=== PATIENT | male | born 1940 | race Caucasian/White ===

== ENCOUNTER 2017-05-28 19:08 | Emergency (ER) | payer BC ==
[~2017-05-28] VITALS: Ht 188 cm; Wt 95.3 kg
[2017-05-28] MEDS ORDERED: CLONAZEPAM1 MG PO (19:37)
[2017-05-28] MEDS ORDERED: AMLODIPINE BESYL5 MG PO (19:37)
[2017-05-28] MEDS ORDERED: NORCO 10-325 T1 EACH PO (19:37)
[2017-05-28] MEDS ORDERED: SINEMET CR 50-1 EACH PO (19:37)
[2017-05-28] MEDS ORDERED: CEFAZOLIN SOD 1 GM in WATER STERILE 10ML VIAL 10 ML IV SCH (20:00)
[2017-05-28] MEDS ORDERED: ONDANSETRON HCL INJ 2 MG/ML VIAL IV STA (20:05)
[2017-05-28] MEDS ORDERED: KETOROLAC TROMETHAMINE 30 MG/ML VIAL IV STA (20:05)
[2017-05-28] MEDS ORDERED: SODIUM CHLORIDE 0.9% 500ML 500 ML IV ONE (20:15)
[2017-05-28] MEDS ORDERED: PROMETHAZINE HCL (IM) 25 MG/ML VIAL IM ONE (20:30)
[2017-05-28] MEDS ORDERED: MORPHINE SULFATE 5 MG/ML VIAL IV ONE (21:00)
[2017-06-01] MEDS ORDERED: SINEMET 25-1001 EACH PO (17:20)
[2017-06-01] MEDS ORDERED: SULFAMETHOXAZO1 EAC1 PO (17:21)
[2017-06-01] MEDS ORDERED: SERTRALINE HCL100 MG PO (17:21)
[2017-06-01] MEDS ORDERED: FLOMAX0.4 MG PO (17:22)
[2017-06-01] MEDS ORDERED: KETOROLAC TROME10 MG PO (17:22)
== END 2017-05-28 22:30 | disposition home or self-care (01) ==
LOC: FSED 19:08
DX: R10.9 Unspecified abdominal pain (principal); N20.1 Calculus of ureter; F17.290 Nicotine dependence, other tobacco product, uncomplicated
CPT/HCPCS: 74176; 80048; 85025; 99283; J1885; J2405; J7040

== ENCOUNTER → 2017-06-02 | Day surgery (SDC) | payer BC, MEDICARE ==
[~2017-06-02] MED LIST: AMLODIPINE BESYL5 MG PO; CEFTRIAXONE SOD 1 GM VIAL ONE; CLONAZEPAM1 MG PO; DEXAMETHASONE SOD PHOS INJ 4 MG/ML VIAL ONE; FENTANYL CITRATE/PF 100MCG/2 ML INJ ONE; FLOMAX0.4 MG PO; IOPAMIDOL 610MG/1ML 300 MG/ML VIAL IV ONE; KETOROLAC TROME10 MG PO; LIDOCAINE HCL 2% LOCAL INJ 5 ML SDV VIAL INJ ONE; MIDAZOLAM HCL 2 MG/2 ML VIAL ONE; NORCO 10-325 T1 EACH PO; ONDANSETRON HCL INJ 2 MG/ML VIAL ONE; PROPOFOL IV EMULSION 10 MG/ML 20 ML VIAL ONE; SERTRALINE HCL100 MG PO; SEVOFLURANE INHAL SOLN 250 ML PEN BTL ONE; SINEMET 25-1001 EACH PO; SINEMET CR 50-1 EACH PO; SULFAMETHOXAZO1 EAC1 PO
--- OUTSIDE RECORDS SUMMARY | 2017-06-02 05:22 | XMS REPORT | Continuity of Care Document ---
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 No 05/28/17 7:56pm If yes, is advance [facility]? No 05/28/17 7:56pm If not on file with [facility] will patient provide a copy? No 05/28/17 7:56pm Do you have a Directive to Physician? No 05/28/17 7:56pm Do you have a Medical Power of Fire Coordinator? No 05/28/17 7:56pm Do you have an out of hospital Do Not Resuscitate Order? No 05/28/17 7:56pm Do you have any special needs we should be aware of? No 05/28/17 7:56pm Do you have a support person here with you today? Yes 05/28/17 7:56pm Did patient receive Notice of Privacy Practices? Yes 05/28/17 7:56pm Did patient receive patient rights and responsibilities? Yes 05/28/17 7:56pm Problems No problem information available. Medications Current Home Medications Medication Dose Units Route Directions Days Qty Instructions Start Date Amlodipine Besylate 5 Mg Tablet 5 Mg Oral Daily 30 Tab Carbidopa/Levodopa (Sinemet Cr 50-200 Tablet) 1 Each Tablet.er Oral Bedtime for Pain Clonazepam 1 Mg Tablet 3 Mg Oral As Needed for Sleep Hydrocodone Bit/Acetaminophen ([place] 10-325 Tablet) 1 Each Tablet 1 Tab Oral Bedtime for Pain Social History Smoking Status Start Date Stop Date Current every day smoker Hospital Discharge Instructions No hospital discharge instruction information available. Plan of Care Discharge Date 05/28/17 10:30pm Disposition HOME, SELF-CARE Condition at Discharge Improved Instructions/Education Provided Kidney Stones Prescriptions See Medication Section Referrals ADDY CHAMBERS MD Address: [address] [place] [id number] Additional Instructions/Education Discussed with patient working diagnosis of kidney stone and urinary tract infection. Recommend medical therapy with FOLLOW UP MD/Urology in 2-3 days. ED warnings given. Functional Status No functional status information available. Allergies, Adverse Reactions, Alerts No known allergies. Immunizations No immunization information available. Vital Signs Acute Vital Signs Vital Response Date/Time Height 6 ft 2 in 05/28/2017 7:13pm Weight 210 lb 05/28/2017 7:13pm Body Mass Index 27.0 kg/m^2 05/28/2017 7:13pm Results No relevant diagnostic test, laboratory data and/or discharge summary information available. Procedures No procedure information available. Encounters Encounter Location Arrival/Admit Date Discharge/Depart Date Attending Provider Departed Emergency Room [facility] 05/28/17 7:08pm 10:30pm KHOA HERNANDEZ MD
[2017-06-02 06:30] LABS: BASOPHILS # (AUTO) 0.1 (0.0-0.1); BASOPHILS % 0.7 % (0.0-1.0); EOSINOPHILS # (AUTO) 0.3 (0.0-0.4); EOSINOPHILS % 3.6 % (0.0-6.0); HEMATOCRIT 43.6 % (38.2-49.6); HEMOGLOBIN 14.7 g/dL (14.0-18.0); LYMPHOCYTES # (AUTO) 2.3 (1.0-3.2); LYMPHOCYTES % 27.8 % (18.0-39.1); MEAN CORPUSCULAR HEMOGLOBIN 31.7 pg (28-32); MEAN CORPUSCULAR HGB CONC 33.7 g/dL (31-35); MONOCYTES # (AUTO) 0.7 (0.2-0.8); NEUTROPHILS # (AUTO) 4.8 (2.1-6.9); NEUTROPHILS % 58.7 % (38.7-80.0); PLATELET COUNT 200 x10e3/uL (140-360); RED BLOOD COUNT 4.64 x10e6/uL (4.3-5.7); RED CELL DISTRIBUTION WIDTH 14.7 % (11.7-14.4)
--- NOTE | 2017-06-02 06:46 | Diagnostic Imaging Report ---
ABDOMEN-1VIEW (KUB) Clinical history: Preop left kidney stone Technique: AP view abdomen Comparison: None Findings: Abdomen: Nonobstructive bowel gas pattern with significant stool burden. Other: No definite stones are appreciated over the expected kidneys. Cholecystectomy clips. Impression: No stones appreciated radiographically, although these may be obscured by stool burden. Signed by: Dr Rebeca Ferguson MD on 06/02/2017 6:43 AM
--- NOTE | 2017-06-02 06:47 | Diagnostic Imaging Report ---
CHEST 2 VIEWS, Technique: CHEST 2 VIEWS Comparison: None Clinical history: Surgery, preop left kidney stone DISCUSSION: Unremarkable appearance of the heart, mediastinum, lungs and pleural spaces. IMPRESSION: No acute abnormality Signed by: Dr Rebeca Ferguson MD on 06/02/2017 6:43 AM
--- NOTE | 2017-06-02 08:10 | Operative Report ---
DATE OF PROCEDURE: June 02, 2017 PREOPERATIVE DIAGNOSES 1. Left proximal ureteral calculus. 2. Left hydronephrosis. 3. Microscopic hematuria. POSTOPERATIVE DIAGNOSES 1. Left proximal ureteral calculus. 2. Left hydronephrosis. 3. Microscopic hematuria. 4. Left renal calculus. PROCEDURES 1. Cystourethroscopy with right ureteral catheterization and right retrograde pyelogram (separate procedure for diagnosis of microscopic hematuria). 2. Cystourethroscopy with manipulation of left ureteral calculus (entirely separate procedure for manipulation of left ureteral calculus ). 3. Staged shock wave lithotripsy, left side (entirely separate procedure for left kidney stone). 4. Supervision of fluoroscopy. 5. Interpretation of retrograde ureteropyelography. ANESTHESIA: General. ESTIMATED BLOOD LOSS: Minimal. COMPLICATIONS: None. INDICATIONS FOR PROCEDURE: Mr. Moore is a very pleasant 76-year-old male with a failed trial of passage with large 7 mm proximal ureteral calculus. He and I had a long discussion about alternatives, risks and benefits including doing nothing, shock wave lithotripsy, ureteroscopy, potential for open surgery. He voiced understanding of this and he elected to proceed. PROCEDURE IN DETAIL: After informed consent was obtained, the patient was taken to the operative suite and placed supine on the table. Underwent general anesthesia, and was placed in the dorsal lithotomy position, and sterilely prepped and draped in a standard fashion for cystoscopy. A 22.5-Armenian cystoscope was inserted per urethra. It was noted to pass to the bladder. There were no tumors and no stones. Both ureteral orifices were within normal anatomic location and position and normally seen efflux of clear urine. Bilateral retrograde pyelograms were performed. The right was normal. The left revealed a very large 7 mm proximal ureteral calculus. With a moderate degree of difficulty, the stone was manipulated in the renal pelvis. Shock wave lithotripsy was then brought into the view. The stone was localized in the X, Y and Z planes. A total of 3000 shocks at a maximum power setting of 6 were delivered to the stone. Good fragmentation was seen. A retrograde pyelogram at the end of the procedure revealed no obstruction and only small fragments. At this time, the bladder was drained. The patient was awakened from anesthesia, and transported to the recovery room in excellent condition. SUPERVISION OF FLUOROSCOPY, INTERPRETATION OF RETROGRADE URETERAL PYELOGRAPHY: I was present throughout the entire procedure and I supervised the use of fluoroscopy. There was no radiologist present at any time during this procedure. Attention was turned toward the left and right ureteral orifices, catheterized with an 8-Armenian cone-tipped catheter. In a retrograde fashion, contrast was injected. It revealed delicate ureters, delicate pelviceal systems. No evidence of filling defects. No evidence of hydronephrosis. On the left side, there was a proximal 7 x 6 mm stone, which was manipulated in the left renal pelvis. Postoperative views on the left side revealed dissolution of the stone. IMPRESSION: Left ureteral calculus manipulated to the left renal pelvis, status post lithotripsy. Normal right retrograde pyelogram. Job#: [id number] SUSANNE OLIVIER
== END | disposition home or self-care (01) ==
LOC: OR 05:21
PROVIDERS: ATTEND Urology
DX: N20.1 Calculus of ureter (principal); N13.30 Unspecified hydronephrosis; N20.0 Calculus of kidney; I10 Essential (primary) hypertension
CPT/HCPCS: 36415; 50590; 71046; 74018; 85025; C1758; J0696; J1100; J2001; J2250; J2405; Q9967

== ENCOUNTER 2020-03-10 10:58 | Emergency (ER) | payer MEDICARE ==
[~2020-03-10] VITALS: Ht 188 cm; Wt 95.3 kg
[~2020-03-10 10:58] MED LIST changes: -CEFTRIAXONE SOD 1 GM VIAL ONE; -DEXAMETHASONE SOD PHOS INJ 4 MG/ML VIAL ONE; -FENTANYL CITRATE/PF 100MCG/2 ML INJ ONE; -IOPAMIDOL 610MG/1ML 300 MG/ML VIAL IV ONE; -LIDOCAINE HCL 2% LOCAL INJ 5 ML SDV VIAL INJ ONE; -MIDAZOLAM HCL 2 MG/2 ML VIAL ONE; -ONDANSETRON HCL INJ 2 MG/ML VIAL ONE; -PROPOFOL IV EMULSION 10 MG/ML 20 ML VIAL ONE; -SEVOFLURANE INHAL SOLN 250 ML PEN BTL ONE
[2020-03-10] MEDS: ONDANSETRON HCL INJ 2MG/ML 2ML 2 MG/ML VIAL IV STA ×2 (11:21→11:29)
[2020-03-10] MEDS: SODIUM CHLORIDE 0.9% 1000ML 1,000 ML IV ONE (11:21)
[2020-03-10] MEDS: KETOROLAC TROMETHAMINE 30 MG/ML VIAL IV ONE (11:21)
[2020-03-10] MEDS ORDERED: KETOROLAC TROMETHAMINE 30 MG/ML VIAL ONE (11:22)
[2020-03-10] MEDS ORDERED: ONDANSETRON HCL INJ 2MG/ML 2ML 2 MG/ML VIAL ONE (11:22)
[2020-03-10] MEDS ORDERED: SODIUM CHLORIDE 0.9% 1000ML 1,000 ML ONE (11:22)
[2020-03-10] MEDS: KETOROLAC TROMETHAMINE 30 MG/ML VIAL IV STA (11:29)
--- NOTE | 2020-03-10 12:00 | Diagnostic Imaging Report ---
EXAM: CT ABDOMEN AND PELVIS WITHOUT CONTRAST FOR RENAL STONES CLINICAL INDICATION: Right flank pain and nausea for 4 days TECHNIQUE: CT abdomen and pelvis was performed, without IV or oral contrast, as per department renal stone protocol. Axial, sagittal, and coronal reconstructions were obtained. IV CONTRAST: Not administered, limiting sensitivity of this exam for evaluation of solid visceral organs, vascular structures, and retroperitoneum. ORAL CONTRAST:Not administered, limiting sensitivity of this exam for evaluation of bowel, retroperitoneum, and intraabdominal fluid collections. RADIATION DOSE REDUCTION: This exam was performed according to the departmental dose-optimization program which includes automated exposure control, adjustment of the mA and/or kV according to patient size and/or use of iterative reconstruction technique. COMPARISON: None FINDINGS: LOWER CHEST: No pathologic process in imaged portion of lower chest RIGHT KIDNEY: No calculi. Contour irregularity of the lateral cortex close to the lower pole suggestive of prior infection or infarction. RIGHT URETER: Normal course and caliber. No ureterolithiasis. LEFT KIDNEY: A 7 mm calculus in the posterior mid pole calyx. A 3 mm calculus in the lower posterior calyx. Contour irregularity of the lateral cortex close to the lower pole suggestive of prior infection or infarction. LEFT URETER: Normal course and caliber. No ureterolithiasis. URINARY BLADDER: Unremarkable. No calculi. LIVER: No pathologic process. GALLBLADDER: Status post cholecystectomy BILE DUCTS: No pathologic process. PANCREAS: No pathologic process. SPLEEN: No pathologic process. ADRENALS: No pathologic process. GASTROINTESTINAL TRACT: No pathologic process. Retained barium in multiple colonic diverticula. APPENDIX: No inflammatory changes in region of appendix.] LYMPH NODES: No lymphadenopathy. PERITONEUM/MESENTERY: No free air, significant free fluid, mass or fluid collection. VESSELS: No vascular abnormality. ADDITIONAL RETROPERITONEAL FINDINGS: None. REPRODUCTIVE ORGANS: No pathologic process. ABDOMINAL AND PELVIC [place]: No pathologic process. MUSCULOSKELETAL: Degenerative disc disease most advanced at L5-S1 level. ADDITIONAL FINDINGS: None. IMPRESSION: Two small left renal calculi nonobstructive. No evidence of obstructive urinary tract calculi. No other significant abnormality. Standardized Report: [id number]. Signed by: Jovanny Rizo MD on 03/10/2020 11:57 AM
--- OUTSIDE RECORDS SUMMARY | 2020-03-10 12:03 | XMS REPORT | Continuity of Care Document ---
Author Author [facility] Organization [facility] Address [address] [place] [address] Phone Unavailable Care Team Providers Care Ladle Handler Name Role Phone ADDY CHAMBERS MD PCP JESSICA ONEILL Attphys Unavailable ALICIA GARCIA Attphys Unavailable Payers Payer Name Policy Type Policy Number Effective Date Expiration Date [employer] [employer] [employer] [id number] 2017 00:00:00 1998 00:00:00 [facility] Problems This patient has no known problems. Allergies, Adverse Reactions, Alerts This patient has no known allergies or adverse reactions. Medications Ordered Medication Name Filled Medication Name Start Date Stop Da te Current Medication? Ordering Clinician Indication Dosage Frequency Signature (SIG) Comments Components Source Amlodipine Besylate 5 Mg Tablet Amlodipine Besylate 5 Mg Tablet Yes 5 Daily [facility] Carbidopa/Levodopa (Sinemet Cr 50-200 Tablet) 1 Each T ablet.er Carbidopa/Levodopa (Sinemet Cr 50-200 Tablet) 1 Each Tablet.er Y es Bedtime for Pain [facility] Clonazepam 1 Mg Tablet Clonazepam 1 Mg Tablet Yes 3 As Needed for Sleep [facility] Hydrocodone Bit/Acetaminophen ([place] 10-325 Tablet) 1 Each Tablet Hydrocodone Bit/Acetaminophen ([place] 10-325 Tablet) 1 Each Tablet Yes 1 Bedtime for Pain [facility] Procedures This patient has no known procedures. Encounters Start Date/Time End Date/Time Encounter Type Admission Type [facility] Care Department Encounter ID Source 2017-05-28 19:08:00 2017-05-28 22:30:[address] [facility] [id number] [facility] Results Test Description Test Time Test Comments Results Result Comments Source CT ABD/PEL WO CONTRAST-HOPD 2020-03-10 11:48:00 [facility] 1940 Sex: M [facility] [address] [address] Patient Name: RIA CASSIDY MR #: [id number] : 1940 Age/Sex: 79/M Req #: [id number] Adm Physician: Ordered by: JESSICA ONEILL MD Report #: [id number] Location: [facility] OF [facility] Room/Bed: Procedure: [id number] HOPD/CT ABD/PEL WO CONTRAST-HOPD Exam Date: 03/10/20 Exam Time: 1138 REPORT STATUS: Signed EXAM: CT ABDOMEN AND PELVIS WITHOUT CONTRAST FOR RENAL STONES CLINICAL INDICATION: Right flank pain and nausea for 4 days TECHNIQUE: CT abdomen and pelvis was performed, without IV or oral contrast, as per department renal stone protocol. Axial, sagittal, and coronal reconstructions were obtained. IV CONTRAST: Not administered, limiting sensitivity of this exam for evaluation of solid visceral organs, vascular structures, and retroperitoneum. ORAL CONTRAST:Not administered, limiting sensitivity of this exam for evaluation of bowel, retroperitoneum, and intraabdominal fluid collections. RADIATION DOSE REDUCTION: This exam was performed according to the departmental dose- optimization program which includes automated exposure control, adjustment of the mA and/or kV according to patient size and/or use of iterative reconstruction technique. COMPARISON: None FINDINGS: LOWER CHEST: No pathologic process in imaged portion of lower chest RIGHT KIDNEY: No calculi. Contour irregularity of the lateral cortex close to the lower pole suggestive of prior infection or infarction. RIGHT URETER: Normal course and caliber. No ureterolithiasis. LEFT KIDNEY: A 7 mm calculus in the posterior mid pole calyx. A 3 mm calculus in the lower posterior calyx. Contour irregularity of the lateral cortex close to the lower pole suggestive of prior infection or infarction. LEFT URETER: Normal course and caliber. No ureterolithiasis. URINARY BLADDER: Unremarkable. No calculi. LIVER: No pathologic process. GALLBLADDER: Status post cholecyst ectomy BILE DUCTS: No pathologic process. PANCREAS: No pathologic process. SPLEEN: No pathologic process. ADRENALS: No pathologic process. GASTROINTESTINAL TRACT: No pathologic process. Retained barium in multiple colonic diverticula. APPENDIX: No inflammatory changes in region of appendix.] LYMPH NODES: No lymphadenopathy. PERITONEUM/MESENTERY: No free air, significant free fluid, mass or fluid collection. VESSELS: No vascular abnormality. ADDITIONAL RETROPERITONEAL FINDINGS: None. REPRODUCTIVE ORGANS: No pathologic proc ess. ABDOMINAL AND PELVIC [place]: No pathologic process. MUSCULOSKELETAL: Degenerative disc disease most advanced at L5-S1 level. ADDITIONAL FINDINGS: None. IMPRESSION: Two small left renal calculi nonobstructive. No evidence of obstructive urinary tract calculi. No other significant abnormality. Standardized Report: [id number]. Signed by: Guy Oakes MD on 03/10/2020 11:57 AM Dictated By: GUY OAKES MD 115 Transcribed By: LOUISE on 03/10/201156 COPY TO: JESSICA ONEILL MD [facility] ([address] [address] Patient Name: RIA CASSIDY MR #: [id number] : 1940 Age/Sex: 76/M Req #: [id number] Adm Physician: Ordered by: KHOA NIETO MD Report #: [id number] Location: OR Room/Bed: Procedure: [id number] DX/ABDOMEN-1VIEW (KUB) Exam Date: 06/02/17 Exam Time: 619 REPORT STATUS: Signed ABDOMEN-1VIEW (KUB) Clinical history: Preop left kidney stone Technique: AP view abdomen Comparison: None Findings: Abdomen: Nonobstructive bowel gas pattern with significant stool burden. Other: No definite stones are appreciated over the expected kidneys. Cholecystectomy clips. Impression: No stones appreciated radiographically, although these may be obscured by stool burden. Signed by: Dr Sonia Ferguson MD on 06/02/2017 6:43 AM Dictated By: SONIA FERGUSON MD 2 Transcribed By: LOUISE on 06/02/17642 COPY TO: KHOA NIETO MD CHEST 2 VIEWS [address] [place] [address] Patient Name: RIA CASSIDY MR #: [id number] : 1940 Age/Sex: 76/M Req #: [id number] Adm Physician: Ordered by: KHOA NIETO MD Report #: [id number] Location: OR Room/Bed: Procedure: [id number] DX/CHEST 2 VIEWS Exam Date: 06/02/17 Exam Time: 619 REPORT STATUS: Signed CHEST 2 VIEWS, Technique: CHEST 2 VIEWS Comparison: None Clinical history: Surgery, preop left kidney stone DISCUSSION: Unremarkable appearance of the heart, mediastinum, lungs and pleural spaces. IMPRESSION: No acute abnormality Signed by: Dr Sonia Ferguson MD on 06/02/2017 6:43 AM Dictated By: SONIA FERGUSON MD Transcribed By: LOUISE on 06/02/17642 COPY TO: KHOA NIETO MD
--- NOTE | 2020-03-10 12:34 | Emergency Department Note ---
History of Present Illnes History of Present Illness Chief Complaint: Abdominal Complaints History of Present Illness This is a 79 year old male Chief Complaint Comment rt flank pain. hx kidney stones. intermittant. aaox4. ambulatory. . Historian: Patient Arrival Mode: Car Onset (how long ago): day(s) (2) Location: RIGHT FLANK Quality: DULL Radiation: Denies non-radiation, Denies back, Denies neck, Denies extremity, Denies abdomen, Denies periumbilical, Denies flank, Denies proximal, Denies distal, Denies other Severity: moderate Onset quality: gradual Duration (how long): day(s) (2) Timing of current episode: intermittent Progression: waxing and waning Chronicity: new Context: Denies recent illness, Denies recent surgery, Denies recent immobilization, Denies recent travel, Denies trauma/injury, Denies new medications, Denies hx of DVT/PE, Denies non-compliance w/ medications, Denies other Relieving factors: none Exacerbating factors: none Associated symptoms: Denies denies other symptoms, Denies confusion, Denies chest pain, Denies cough, Denies diaphoresis, Denies fever/chills, Denies headaches, Denies loss of appetite, Denies malaise, Denies nausea/vomiting, Denies rash, Denies seizure, Denies shortness of breath, Denies syncope, Denies weakness, Denies other Treatments prior to arrival: none Past Medical/Family History Physician Review I have reviewed the patient's past medical and family history. Any updates have been documented here. Past Medical History Recent Fever: No Clinical Suspicion of Infectio: No New/Unexplained Change in Ment: No Past Medical History: Kidney Stones Other Medical History: RESTLESS LEG SYNDROME Social History Smoking Cessation: Unknown if ever smoked Counseling Performed: No Alcohol Use: None Any Illegal Drug Use: No Physically hurt or threatened: No Other Last Tetanus: UTD Any Pre-Existing Lines (PICC,: No Review of Systems Review of Systems Constitutional: Reports no symptoms EENTM: Reports no symptoms Cardiovascular: Reports no symptoms Respiratory: Reports no symptoms Gastrointestinal: Reports as per HPI Genitourinary: Reports no symptoms Musculoskeletal: Reports no symptoms Integumentary: Reports no symptoms; Denies as per HPI, Denies change in color, Denies change in hair/nails, Denies dryness, Denies lesions, Denies lumps, Denies rash, Denies poor turgor, Denies ecchymosis, Denies other Neurological: Reports no symptoms; Denies as per HPI, Denies headache, Denies numbness, Denies paresthesia, Denies pre-existing deficit, Denies seizure, Denies tingling, Denies tremors, Denies weakness, Denies other Psychological: Reports no symptoms Endocrine: Reports no symptoms Hematological/Lymphatic: Reports no symptoms Physical Exam Related Data Allergies: Coded Allergies: No Known Allergies (Unverified , 05/28/17) Triage Vital Signs Vital Signs Date Time Temp Pulse Resp B/P (MAP) Pulse Ox O2 Delivery O2 Flow Rate FiO2 03/10/20 11:00 98.7 68 16 177/70 97 Room Air Physical Exam CONSTITUTIONAL Constitutional: Present well-developed, Present well-nourished HENT HENT: Present normocephalic, Present atraumatic, Present oropharynx clear/moist, Present nose normal HENT L/R: Present left ext ear normal, Present right ext ear normal; Absent left TM normal, Absent right TM normal, Absent left canal normal, Absent right canal normal, Absent left impacted cerumen, Absent right impacted cerumen, Absent left bulging TM, Absent right bulging TM, Absent other EYES Eyes: Reports PERRL, Reports conjunctivae normal; Denies EOM normal, Denies lids normal, Denies left eye discharge, Denies right eye discharge, Denies scleral icterus, Denies other NECK Neck: Present ROM normal; Absent supple, Absent thyromegaly, Absent tracheal deviation, Absent stridor, Absent JVD, Absent cervical adenopathy, Absent carotid bruit, Absent other PULMONARY Pulmonary: Present effort normal, Present breath sounds normal; Absent respiratory distress, Absent rales, Absent rhonchi, Absent chest tenderness, Absent other CARDIOVASCULAR Cardiovascular: Present regular rhythm, Present heart sounds normal, Present capillary refill normal, Present normal rate; Absent irregular rhythm, Absent intact distal pulses, Absent tachycardia, Absent bradycardia, Absent murmur, Absent gallop, Absent friction rub, Absent palpable pulses, Absent strong pulses, Absent weak pulses, Absent LLE edema, Absent RLE edema, Absent other GASTROINTESTINAL Abdominal: Present soft, Present nontender, Present bowel sounds normal; Absent distension, Absent tender, Absent guarding, Absent mass, Absent rebound, Absent hernia, Absent left CVA tenderness, Absent right CVA tenderness, Absent other GENITOURINARY Genitourinary: Present exam deferred; Absent penis normal, Absent rectum normal, Absent prostate normal, Absent guaiac result, Absent penis tenderness, Absent other SKIN Skin: Present warm, Present dry; Absent erythema, Absent pale, Absent rash, Absent jaundiced, Absent bruising, Absent lesion, Absent other MUSCULOSKELETAL Musculoskeletal: Present ROM normal NEUROLOGICAL Neurological: Present alert, Present oriented x 3, Present no gross motor or sensory deficits; Absent DTRs normal, Absent cranial nerve deficit, Absent sensory deficit, Absent abnormal DTRs, Absent abnormal coordination, Absent abnormal gait, Absent weakness, Absent other PSYCHOLOGICAL Psychological: Present mood/affect normal, Present judgement normal Results Laboratory Lab results reviewed: Yes Imaging Imaging results reviewed: Yes Assessment & Plan Medical Decision Making MDM RENAL COLIC APPENDICITIS Reassessment Reassessment time: 22:00 Reassessment BETTER Assessment & Plan Final Impression: (1) Abdominal pain, right lower quadrant Depart Disposition: HOME, SELF-CARE Last Vital Signs Date Time Temp Pulse Resp B/P (MAP) Pulse Ox O2 Delivery O2 Flow Rate FiO2 03/10/20 11:00 98.7 68 16 177/70 97 Room Air Home Meds Active Scripts Ciprofloxacin Hcl (CIPRO) 500 Mg Tablet, 500 MG PO Q12H, #10 TAB Prov:JESSICA ONEILL MD 03/10/20 Nitrofurantoin Monohyd/M-Cryst (MACROBID 100 MG CAPSULE) 100 Mg Capsule, 100 MG PO BIDWM, #10 CAP Prov:JESSICA ONEILL MD 03/10/20 Cyclobenzaprine Hcl (FLEXERIL) 5 Mg Tablet, 10 MG PO Q8H PRN for PAIN, #15 TAB 0 Refills Prov:JESSICA ONEILL MD 03/10/20 Tamsulosin Hcl* (FLOMAX*) 0.4 Mg Cap, 0.4 MG PO DAILY, #7 CAP Prov:JESSICA ONEILL MD 03/10/20 Ketorolac Tromethamine (TORADOL) 10 Mg Tablet, 10 MG PO TID for pain, #15 Prov:JESSICA ONEILL MD 03/10/20 Reported Medications Tamsulosin Hcl* (FLOMAX*) 0.4 Mg Cap, 0.4 MG PO BID, #30 CAP 06/01/17 Ketorolac Tromethamine (TORADOL) 10 Mg Tablet, 10 MG PO PRN 06/01/17 Sulfamethoxazole/Trimethoprim (SULFAMETHOXAZOLE-TMP DS TABLET) 1 Each Tablet, PO BID 06/01/17 Sertraline Hcl (SERTRALINE HCL) 100 Mg Tablet, 100 MG PO DAILY, TAB 06/01/17 Carbidopa/Levodopa (SINEMET 25-100 MG TABLET) 1 Each Tablet, 1 EACH PO PRN, #30 TAB 06/01/17 Hydrocodone Bit/Acetaminophen (NORCO 10-325 TABLET) 1 Each Tablet, 1 TAB PO PRN 05/28/17 Clonazepam (CLONAZEPAM) 1 Mg Tablet, 1 MG PO PRN, TAB 05/28/17 Amlodipine Besylate (AMLODIPINE BESYLATE) 5 Mg Tablet, 5 MG PO HS, #30 TAB 05/28/17 Carbidopa/Levodopa (SINEMET CR 50-200 TABLET) 1 Each Tablet.er, PO QID 05/28/17 Medications in the ED Ondansetron HCl 4 mg STK-MED ONCE .ROUTE ; Start 03/10/20 at 11:22; Stop 03/10/20 at 11:17; Status DC Ketorolac Tromethamine 30 mg STK-MED ONCE .ROUTE ; Start 03/10/20 at 11:22; Stop 03/10/20 at 11:17; Status DC Sodium Chloride 1,000 ml @ ud STK-MED ONCE .ROUTE ; Start 03/10/20 at 11:22; Stop 03/10/20 at 11:17; Status DC Sodium Chloride 1,000 ml @ 0 mls/hr Q0M ONCE IV Last administered on 03/10/20at 11:21; Admin Dose 1,000 MLS/HR; Start 03/10/20 at 11:30; Stop 03/10/20 at 11:31; Status DC Ketorolac Tromethamine 15 mg ONCE ONCE IV Last administered on 03/10/20at 11:21; Admin Dose 15 MG; Start 03/10/20 at 11:30; Stop 03/10/20 at 11:31; Status DC Ondansetron HCl 4 mg NOW STAT IV Last administered on 03/10/20at 11:21; Admin Dose 4 MG; Start 03/10/20 at 11:18; Stop 03/10/20 at 11:26; Status DC Ketorolac Tromethamine 15 mg ONCE STAT IV ; Start 03/10/20 at 11:24; Stop 03/10/20 at 11:33; Status DC Ondansetron HCl 4 mg NOW STAT IV ; Start 03/10/20 at 11:24; Stop 03/10/20 at 11:33; Status DC JESSICA ONEILL MD Mar 10, 2020 12:34
[2020-03-10] MEDS ORDERED: CIPRO500 MG PO (12:37)
[2020-03-10] MEDS ORDERED: FLOMAX0.4 MG PO (12:37)
[2020-03-10] MEDS ORDERED: CYCLOBENZAPRINE5 MG PO (12:37)
[2020-03-10] MEDS ORDERED: MACROBID 100 M100 MG PO (12:37)
[2020-03-10] MEDS ORDERED: KETOROLAC TROME10 MG PO (12:37)
== END 2020-03-10 12:55 | disposition home or self-care (01) ==
LOC: FSED 11:33
DX: R10.31 Right lower quadrant pain (principal); M54.5 Low back pain; G25.81 Restless legs syndrome; Z87.442 Personal history of urinary calculi
CPT/HCPCS: 74176; 80053; 81003; 85025; 99284; J1885; J2405; J7030

== ENCOUNTER 2020-03-14 12:17 | Emergency (ER) | payer MEDICARE ==
[~2020-03-14] VITALS: Ht 188 cm; Wt 101.2 kg
[~2020-03-14 12:17] MED LIST changes: +CIPRO500 MG PO; +CYCLOBENZAPRINE5 MG PO; +MACROBID 100 M100 MG PO
--- NOTE | 2020-03-14 12:33 | Emergency Department Note ---
History of Present Illnes History of Present Illness Chief Complaint: General Medicine Complaints History of Present Illness This is a 79 year old male recently seen at [facility] 03/10/20 returns to the ED for R flank pain . Rx Cyclobenzaprine and Toradol, patient has finished mediciation. Appointment with Dr Bruner 03/17/2020 . Historian: Patient Arrival Mode: Car Onset (how long ago): day(s) (4) Location: R flank pain Radiation: Reports non-radiation Severity: moderate Onset quality: gradual Duration (how long): hour(s) Timing of current episode: constant Progression: worsening Chronicity: new Context: Denies recent illness, Denies recent surgery, Denies recent immobilization, Denies recent travel, Denies trauma/injury, Denies new medications, Denies hx of DVT/PE, Denies non-compliance w/ medications, Denies other Relieving factors: none Exacerbating factors: none Associated symptoms: Reports nausea/vomiting Treatments prior to arrival: none Past Medical/Family History Physician Review I have reviewed the patient's past medical and family history. Any updates have been documented here. Past Medical History Recent Fever: No Clinical Suspicion of Infectio: No New/Unexplained Change in Ment: No Past Medical History: Kidney Stones Other Medical History: RESTLESS LEG SYNDROME Past Surgical History: None Social History Smoking Cessation: Never Smoker Alcohol Use: None Any Illegal Drug Use: No Other Last Tetanus: UTD Review of Systems Review of Systems Constitutional: Reports no symptoms EENTM: Reports no symptoms Cardiovascular: Reports no symptoms Respiratory: Reports no symptoms Gastrointestinal: Reports nausea Genitourinary: Reports pain (r flank) Musculoskeletal: Reports no symptoms Integumentary: Reports no symptoms Neurological: Reports no symptoms Psychological: Reports no symptoms Endocrine: Reports no symptoms Hematological/Lymphatic: Reports no symptoms Physical Exam Related Data Allergies: Coded Allergies: No Known Allergies (Unverified , 05/28/17) Triage Vital Signs Vital Signs Date Time Temp Pulse Resp B/P (MAP) Pulse Ox O2 Delivery O2 Flow Rate FiO2 03/14/20 12:27 98.0 88 18 133/72 96 Room Air Vital signs reviewed: Yes Physical Exam CONSTITUTIONAL Constitutional: Present well-developed, Present well-nourished HENT HENT: Present normocephalic, Present atraumatic, Present oropharynx clear/moist, Present nose normal HENT L/R: Present left ext ear normal, Present right ext ear normal EYES Eyes: Reports PERRL, Reports conjunctivae normal NECK Neck: Present ROM normal PULMONARY Pulmonary: Present effort normal, Present breath sounds normal CARDIOVASCULAR Cardiovascular: Present regular rhythm, Present heart sounds normal, Present capillary refill normal, Present normal rate GASTROINTESTINAL Abdominal: Present right CVA tenderness GENITOURINARY Genitourinary: Present exam deferred SKIN Skin: Present warm, Present dry MUSCULOSKELETAL Musculoskeletal: Present ROM normal NEUROLOGICAL Neurological: Present alert, Present oriented x 3, Present no gross motor or sensory deficits PSYCHOLOGICAL Psychological: Present mood/affect normal, Present judgement normal Results Imaging Imaging results reviewed: Yes Impressions [place] [id number] Patient Name: RIA CASSIDY MR #: [id number] : 1940 Age/Sex: 79/M Req #: [id number] Adm Physician: Ordered by: RIA OROPEZA DO Report #: [id number] Location: [facility] Room/Bed: Procedure: [id number] HOPD/CT ABD/PEL WO CONTRAST-HOPD Exam Date: 03/14/20 Exam Time: 1308 REPORT STATUS: Signed EXAM: CT Abdomen and Pelvis WITHOUT intravenous contrast INDICATION: Flank pain COMPARISON: CT abdomen and pelvis of 03/10/2020 TECHNIQUE: Abdomen and pelvis were scanned utilizing a multidetector helical scanner from the lung base to the pubic symphysis without administration of IV contrast. Coronal and sagittal reformations were obtained. IV CONTRAST: None ORAL CONTRAST: None COMPLICATIONS: None RADIATION DOSE: Total DLP: 871 mGy*cm Dose modulation, iterative reconstruction, and/or weight based adjustment of the mA/kV was utilized to reduce the radiation dose to as low as reasonably achievable. FINDINGS: LOWER THORAX: Normal. HEPATOBILIARY: No focal liver lesions. Status post cholecystectomy. SPLEEN: No splenomegaly. PANCREAS: No focal masses or ductal dilatation. ADRENALS: No adrenal nodules. KIDNEYS/URETERS: Unchanged nonobstructive left lower pole renal calculi measure up to 7 mm. No hydronephrosis or hydroureter. PELVIC ORGANS/BLADDER: Coarse calcifications in the nonenlarged prostate. PERITONEUM / RETROPERITONEUM: No free air or fluid. LYMPH NODES: No lymphadenopathy. VESSELS: Mild scattered atherosclerotic calcifications of the nonaneurysmal abdominal aorta and major branches. GI TRACT: Diverticulosis without CT evidence of diverticulitis. No abnormal bowel thickening. No bowel obstruction. BONES AND SOFT TISSUES: No acute osseous injury. No suspicious lytic or blastic lesions. Grade 1 retrolisthesis at L2-3. IMPRESSION: Unchanged nonobstructive left lower pole renal calculi measure up to 7 mm. No hydronephrosis or hydroureter. Diverticulosis. Signed by: Frannie Ulloa MD on 03/14/2020 1:15 PM Dictated By: FRANNIE ULLOA MD 14 Transcribed By: LOUSIE on 03/14/201314 COPY TO: RIA OROPEZA DO~ Assessment & Plan Medical Decision Making MDM Diff Dx : appendicitis, kidney stone, UTI, kidney infection sciatica Assessment & Plan Final Impression: (1) Right low back pain Home Meds Active Scripts Ciprofloxacin Hcl (CIPRO) 500 Mg Tablet, 500 MG PO Q12H, #10 TAB Prov:JESSICA ONEILL MD 03/10/20 Nitrofurantoin Monohyd/M-Cryst (MACROBID 100 MG CAPSULE) 100 Mg Capsule, 100 MG PO BIDWM, #10 CAP Prov:JESSICA ONEILL MD 03/10/20 Cyclobenzaprine Hcl (FLEXERIL) 5 Mg Tablet, 10 MG PO Q8H PRN for PAIN, #15 TAB 0 Refills Prov:JESSICA ONEILL MD 03/10/20 Tamsulosin Hcl* (FLOMAX*) 0.4 Mg Cap, 0.4 MG PO DAILY, #7 CAP Prov:JESSICA ONEILL MD 03/10/20 Ketorolac Tromethamine (TORADOL) 10 Mg Tablet, 10 MG PO TID for pain, #15 Prov:JESSICA ONEILL MD 03/10/20 Reported Medications Tamsulosin Hcl* (FLOMAX*) 0.4 Mg Cap, 0.4 MG PO BID, #30 CAP 06/01/17 Ketorolac Tromethamine (TORADOL) 10 Mg Tablet, 10 MG PO PRN 06/01/17 Sulfamethoxazole/Trimethoprim (SULFAMETHOXAZOLE-TMP DS TABLET) 1 Each Tablet, PO BID 06/01/17 Sertraline Hcl (SERTRALINE HCL) 100 Mg Tablet, 100 MG PO DAILY, TAB 06/01/17 Carbidopa/Levodopa (SINEMET 25-100 MG TABLET) 1 Each Tablet, 1 EACH PO PRN, #30 TAB 06/01/17 Hydrocodone Bit/Acetaminophen (NORCO 10-325 TABLET) 1 Each Tablet, 1 TAB PO PRN 05/28/17 Clonazepam (CLONAZEPAM) 1 Mg Tablet, 1 MG PO PRN, TAB 05/28/17 Amlodipine Besylate (AMLODIPINE BESYLATE) 5 Mg Tablet, 5 MG PO HS, #30 TAB 05/28/17 Carbidopa/Levodopa (SINEMET CR 50-200 TABLET) 1 Each Tablet.er, PO QID 05/28/17 RIA OROPEZA DO Mar 14, 2020 12:33
[2020-03-14] MEDS ORDERED: KETOROLAC TROMETHAMINE 60 MG/2 ML VIAL IM ONE (12:45)
[2020-03-14] MEDS ORDERED: KETOROLAC TROMETHAMINE 60 MG/2 ML VIAL ONE (12:51)
--- NOTE | 2020-03-14 13:18 | Diagnostic Imaging Report ---
EXAM: CT Abdomen and Pelvis WITHOUT intravenous contrast INDICATION: Flank pain COMPARISON: CT abdomen and pelvis of 03/10/2020 TECHNIQUE: Abdomen and pelvis were scanned utilizing a multidetector helical scanner from the lung base to the pubic symphysis without administration of IV contrast. Coronal and sagittal reformations were obtained. IV CONTRAST: None ORAL CONTRAST: None COMPLICATIONS: None RADIATION DOSE: Total DLP: 871 mGy*cm Dose modulation, iterative reconstruction, and/or weight based adjustment of the mA/kV was utilized to reduce the radiation dose to as low as reasonably achievable. FINDINGS: LOWER THORAX: Normal. HEPATOBILIARY: No focal liver lesions. Status post cholecystectomy. SPLEEN: No splenomegaly. PANCREAS: No focal masses or ductal dilatation. ADRENALS: No adrenal nodules. KIDNEYS/URETERS: Unchanged nonobstructive left lower pole renal calculi measure up to 7 mm. No hydronephrosis or hydroureter. PELVIC ORGANS/BLADDER: Coarse calcifications in the nonenlarged prostate. PERITONEUM / RETROPERITONEUM: No free air or fluid. LYMPH NODES: No lymphadenopathy. VESSELS: Mild scattered atherosclerotic calcifications of the nonaneurysmal abdominal aorta and major branches. GI TRACT: Diverticulosis without CT evidence of diverticulitis. No abnormal bowel thickening. No bowel obstruction. BONES AND SOFT TISSUES: No acute osseous injury. No suspicious lytic or blastic lesions. Grade 1 retrolisthesis at L2-3. IMPRESSION: Unchanged nonobstructive left lower pole renal calculi measure up to 7 mm. No hydronephrosis or hydroureter. Diverticulosis. Signed by: Meg Verdin MD on 03/14/2020 1:15 PM
[2020-03-14 13:43] VITALS: BP 119/68
--- OUTSIDE RECORDS SUMMARY | 2020-03-14 13:44 | XMS REPORT | Continuity of Care Document ---
Author Author [facility] t Organization [facility] Address [address] [place] [id number] Phone Unavailable Care Team Providers Care Leather Grader Name Role Phone TRISH STEIN, MD DALY PCP RIA OROPEZA Attphys Unavailable JESSICA ONEILL Attphys Unavailable ALICIA GARCIA Attphys Unavailable Payers Payer Name Policy Type Policy Number Effective Date Expiration Date Elysia Dior Medicare Advantage [id number] 2016 00:00:00 [facility] [id number] 2017 00:00:00 1998 00:00:00 [facility] Problems Condition Name Condition Details Condition Category Status Onset Date Resolution Date Last Treatment Date Treating Clinician Comments Source Problem Condition Active [facility] Allergies, Adverse Reactions, Alerts This patient has no known allergies or adverse reactions. Social History Social Habit Start Date Stop Date Quantity Comments Source Sex Assigned At 1940 00:00:00 1940 00:00:00 Male [facility] Medications Ordered Medication Name Filled Medication Name Start Date Stop Da te Current Medication? Ordering Clinician Indication Dosage Frequency Signature (SIG) Comments Components Source Ciprofloxacin Hcl (Cipro) 500 Mg TABLET Ciprofloxacin Hcl (C ipro) 500 Mg TABLET 2020-03-10 12:37:00 Yes 500 Every 12 Hours [facility] Cyclobenzaprine Hcl (Flexeril) 5 Mg TABLET Cyclobenzap rine Hcl (Flexeril) 5 Mg TABLET 2020-03-10 12:37:00 Yes 10 Every 8 Hours as needed for Pain [facility] Ketorolac Tromethamine (Toradol) 10 Mg TABLET Ketorola c Tromethamine (Toradol) 10 Mg TABLET 2020-03-10 12:37:00 Yes 10 Three Times A Day for Pain [facility] Nitrofurantoin Monohyd/M-Cryst (Macrobid 100 Mg Capsul e) 100 Mg CAPSULE Nitrofurantoin Monohyd/M-Cryst (Macrobid 100 Mg Capsule) 100 Mg CAPSULE 2020-03-10 12:37:00 Yes 100 Twice Daily With M eals [facility] Tamsulosin Hcl (Flomax*) 0.4 Mg CAP Tamsulosin Hcl (Flomax*) 0.4 Mg CAP 2020-03-10 12:37:00 Yes .4 Daily [facility] Amlodipine Besylate Amlodipine Besylate Yes 5 Bedtime [facility] Carbidopa/Levodopa (Sinemet Cr 50-200 Tablet) 1 Each T ABLET.ER Carbidopa/Levodopa (Sinemet Cr 50-200 Tablet) 1 Each TABLET.ER Y es Four Times Daily [facility] Carbidopa/Levodopa (Sinemet 25-100 Mg Tablet) 1 Each T ABLET Carbidopa/Levodopa (Sinemet 25-100 Mg Tablet) 1 Each TABLET Yes 1 As Needed [facility] Clonazepam Clonazepam Yes 1 As Needed [facility] Hydrocodone Bit/Acetaminophen (Anderson 10-325 Tablet) 1 Each TABLET Hydrocodone Bit/Acetaminophen (Anderson 10-325 Tablet) 1 Each TABLET Yes [address] [facility] Ketorolac Tromethamine (Toradol) 10 Mg TABLET Ketorola c Tromethamine (Toradol) 10 Mg TABLET Yes 10 As Needed [facility] Sertraline Hcl Sertraline Hcl Yes 100 Daily [facility] Sulfamethoxazole/Trimethoprim (Sulfamethoxazole-Tmp Ds Tablet) 1 Each TABLET Sulfamethoxazole/Trimethoprim (Sulfamethoxazole-Tmp Ds Tablet) 1 Each TABLET Yes Twice A Day [facility] Tamsulosin Hcl (Flomax*) 0.4 Mg CAP Tamsulosin Hcl (Flomax*) 0.4 Mg C AP Yes .4 Twice A Day [facility] Vital Signs Vital Name Observation Time Observation Value Comments Source Oxygen saturation by Pulse oximetry 2020-03-10 11:00:00 97 /min [facility] Weight 2020-03-10 11:00:00 210 [lb_av] [facility] BMI (Body Mass Index) 2020-03-10 11:00:00 27.0 kg/m2 [facility] Procedures This patient has no known procedures. Encounters Start Date/Time End Date/Time Encounter Type Admission Type Attendi [facility] Care Department Encounter ID Source 2020-03-10 11:33:00 2020-03-10 12:55:00 Departed Emergency Room 1 JESSICA ONEILL [facility] [id number] [facility] 2017-05-28 19:08:00 2017-05-28 22:30:00 Departed Emergency Room [facility] [id number] [facility] Results Test Description Test Time Test Comments Results Result Comments Source CT ABD/PEL WO CONTRAST-HOPD 2020-03-14 13:11:00 [facility] 1940 Sex: [place] [id number] Patient Name: RIA CASSIDY MR #: [id number] : 1940 Age/Sex: 79/M Req #: [id number] Adm Physician: Ordered by: RIA OROPEZA DO Report #: [id number] Location: [facility] Room/Bed: Procedure: [id number] HOPD/CT ABD/PEL WO CONTRAST-HOPD Exam Date: 03/14/20 Exam Time: 1308 REPORT STATUS: Signed EXAM: CT Abdomen and Pelvis WITHOUT intravenous contrast INDICATION: Flank pain COMPARISON: CT abdomen and pelvis of 03/10/2020 TECHNIQUE: Abdomen and pelvis were scanned utilizing a multidetector helical scanner from the lung base to the pubic symphysis without administration of IV contrast. Coronal and sagittal reformations were obtained. IV CONTRAST: None ORAL CONTRAST: None COMPLICATIONS: None RADIATION DOSE: Total DLP: 871 mGy*cm Dose modulation, iterative reconstruction, and/or weight based adjustment of the mA/kV was utilized to reduce the radiation dose to as low as reasonably achievable. FINDINGS: LOWER THORAX: Normal. HEPATOBILIARY: No focal liver lesions. Status post cholecystectomy. SPLEEN: No splenomegaly. PANCREAS: No focal masses or ductal dilatation. ADRENALS: No adrenal nodules. KIDNEYS/URETERS: Unchanged nonobstructive left lower pole renal calculi measure up to 7 mm. No hydronephrosis or hydroureter. PELVIC ORGANS/BLADDER: Coarse calcifications in the nonenlarged prostate. PERITONEUM / RETROPERITONEUM: No free air or fluid. LYMPH NODES: No lymphadenopathy. VESSELS: Mild scattered atherosclerotic calcifications of the nonaneurysmal abdominal aorta and major branches. GI TRACT: Diverticulosis without CT evidence of diverticulitis. No abnormal bowel thickening. No bowel obstruction. BONES AND SOFT TISSUES: No acute osseous injury. No suspicious lytic or blastic lesions. Grade 1 retrolisthesis at L2- 3. IMPRESSION: Unchanged nonobstructive left lower pole renal calculi measure up to 7 mm. No hydronephrosis or hydroureter. Diverticulosis. Signed by: Frannie Ulloa MD on 03/14/2020 1:15 PM Dictated By: FRANNIE ULLOA MD 14 Transcribed By: LOUISE on 03/14/201314 COPY TO: RIA OROPEZA DO CT ABD/PEL WO CONTRAST-HOPD 2020-03-10 11:48:00 [facility] 1940 Sex: [place] [phone] Patient Name: RIA CASSIDY MR #: [id number] : 1940 Age/Sex: 79/M Req #: [id number] [facility] Physician: Ordered by: JESSICA ONEILL MD Report #: [id number] Location: [facility] Room/Bed: Procedure: [id number] HOPD/CT ABD/PEL WO CONTRAST-HOPD Exam Date: 03/10/20 [...] 11:57 AM Dictated By: GUY OAKES MD 56 Transcribed By: LOUISE on 03/10/20 COPY TO: JESSICA ONEILL MD [facility] [address], [place] [address] Patient Name: RIA CASSIDY MR #: [id number] : 1940 Age/Sex: 76/M Req #: [id number] Adm Physician: Ordered by: KHOA NIETO MD Report #: [id number] Location: OR Room/Bed: Procedure: [id number] DX/ABDOMEN-1VIEW ([facility]) Exam Date: 06/02/17 Exam Time: 0620 REPORT STATUS: Signed ABDOMEN-1VIEW ([facility]) Clinical history: [...] TO: KHOA NIETO MD CHEST 2 VIEWS [facility] [address] [place], [place] [address] Patient Name: RIA CASSIDY MR #: [id number] : 1940 Age/Sex: 76/M Req #: [id number] Adm Physician: Ordered by: KHOA NIETO MD Report #: [id number] Location: OR Room/Bed: Procedure: [id number] DX/CHEST 2 VIEWS Exam Date: 06/02/17 Exam Time: 0620 REPORT STATUS: Signed CHEST 2 VIEWS, Technique: [...]
== END 2020-03-14 13:53 | disposition home or self-care (01) ==
LOC: FSED 12:26
DX: M54.5 Low back pain (principal); Z87.442 Personal history of urinary calculi
CPT/HCPCS: 74176; 81003; 96372; 99283; J1885

== ENCOUNTER → 2020-03-28 | Outpatient (CLI) | payer MEDICARE | LOC: MRI 07:45 | PROVIDERS: ATTEND Internal Medicine | DX: M54.41 Lumbago with sciatica, right side (principal) | CPT/HCPCS: 72148 ==

== ENCOUNTER → 2021-02-24 | Outpatient (CLI) | payer MEDICARE | LOC: US 09:38 | PROVIDERS: ATTEND Internal Medicine | DX: R74.8 Abnormal levels of other serum enzymes (principal) | CPT/HCPCS: 76705 ==

== ENCOUNTER 2021-10-15 14:31 | Emergency (ER) | payer MEDICARE ==
[~2021-10-15] VITALS: Ht 188 cm; Wt 101.2 kg
[2021-10-15] MEDS ORDERED: METHYLPREDNISOLONE SOD SUCC 125 MG/2ML VIAL IV ONE (15:45)
[2021-10-15] MEDS ORDERED: ALBUTEROL/IPRATROPIUM 3 ML NEB NEB ONE (15:45)
[2021-10-15] MEDS ORDERED: METHYLPREDNISOLONE SOD SUCC 125 MG/2ML VIAL ONE (16:59)
[2021-10-15] MEDS ORDERED: ALBUTEROL/IPRATROPIUM 3 ML NEB ONE (16:59)
[2021-10-15] MEDS ORDERED: COMPACT COMPRE1 EACH INH (17:28)
[2021-10-15] MEDS ORDERED: BENZONATATE100 MG PO (17:28)
[2021-10-15] MEDS ORDERED: PREDNISONE20 MG PO (17:28)
[2021-10-15] MEDS ORDERED: PROAIR HFA INH8.5 GM INH (17:28)
[2021-10-15] MEDS ORDERED: ALBUTEROL2.5 MG/3 M INH (17:28)
[2021-10-15 17:52] VITALS: BP 130/68
== END 2021-10-15 17:56 | disposition home or self-care (01) ==
LOC: FSED 14:46
DX: R05.9 Cough, unspecified (principal); J20.9 Acute bronchitis, unspecified; J45.909 Unspecified asthma, uncomplicated; I10 Essential (primary) hypertension; Z87.442 Personal history of urinary calculi
CPT/HCPCS: 70450; 71045; 93005; 99284; J2930; U0002

== ENCOUNTER 2022-09-03 06:09 | Inpatient (IN) | payer MEDICARE ==
[~2022-09-03] VITALS: Ht 185.4 cm; Wt 102.5 kg
[2022-09-03] VITALS (7 sets, daily range): BP systolic 110–147; BP diastolic 62–76; PULSE 61–73; RESP 15–18; TEMP 97.8–98.8; O2SAT 93–98
[~2022-09-03 06:09] MED LIST changes: +ALBUTEROL2.5 MG/3 M INH; +BENZONATATE100 MG PO; +COMPACT COMPRE1 EACH INH; +PREDNISONE20 MG PO; +PROAIR HFA INH8.5 GM INH
[2022-09-03] MEDS ORDERED: SODIUM CHLORIDE 0.9% 1000ML 1,000 ML IV STA (06:52)
[2022-09-03] MEDS ORDERED: KETOROLAC TROMETHAMINE 30 MG/ML VIAL IV ONE (07:00)
[2022-09-03] MEDS ORDERED: FAMOTIDINE 20 MG/2 ML VIAL IV ONE (07:00)
[2022-09-03] MEDS ORDERED: ONDANSETRON HCL INJ 2MG/ML 2ML 2 MG/ML VIAL IV ONE (07:00)
[2022-09-03] MEDS ORDERED: ALBUTEROL/IPRATROPIUM 3 ML NEB ONE (07:04)
[2022-09-03] MEDS ORDERED: ALBUTEROL/IPRATROPIUM 3 ML NEB NEB ONE (07:15)
[2022-09-03] MEDS ORDERED: DIPHENHYDRAMINE HCL INJ 50 MG/ML VIAL IV PRN (08:15)
[2022-09-03] MEDS ORDERED: SODIUM CHLORIDE 0.9% 1000ML 1,000 ML IV SCH (08:15)
[2022-09-03] MEDS ORDERED: Morphine 4mg INJECTION 4 MG/ML INJ ONE (08:34)
[2022-09-03] MEDS: Morphine 4mg INJECTION 4 MG/ML INJ IV PRN ×2 (09:07→20:57)
[2022-09-03] MEDS: SODIUM CHLORIDE 0.9% 1000ML 1,000 ML IV SCH ×2 (11:30→17:10)
[2022-09-03] MEDS: CIPROFLOXACIN 500 MG TAB PO SCH (17:09)
[2022-09-03] MEDS: FAMOTIDINE 20 MG/2 ML VIAL IV SCH (17:10)
[2022-09-03] MEDS: ALBUTEROL SULF 0.083% NEB SOLN 3 ML NEB NEB SCH (18:35)
[2022-09-03] MEDS: TAMSULOSIN HCL 0.4 MG CAP PO SCH (20:41)
[2022-09-03] MEDS: SERTRALINE HCL 100 MG TAB PO SCH (20:42)
[2022-09-03] MEDS: AMLODIPINE BESYLATE 5 MG TAB PO SCH (20:42)
[2022-09-03] MEDS: BENZONATATE 100 MG CAP PO SCH (20:42)
[2022-09-03] MEDS: CARBIDOPA/LEVODOPA 25/100 CR TAB PO SCH (20:43)
[2022-09-03] MEDS ORDERED: NEURONTIN300 MG PO (20:48)
[2022-09-03] MEDS ORDERED: MIRTAZAPINE15 MG PO (20:48)
[2022-09-03] MEDS ORDERED: ASPIRIN81 MG PO (20:48)
[2022-09-03] MEDS ORDERED: CLONAZEPAM 1 MG TAB PO PRN (21:00)
[2022-09-04] VITALS (12 sets, daily range): BP systolic 114–166; BP diastolic 63–79; PULSE 56–73; RESP 14–19; TEMP 97.5–98.8; O2SAT 92–100
[2022-09-04] MEDS: SODIUM CHLORIDE 0.9% 1000ML 1,000 ML IV SCH ×3 (04:34→17:03)
[2022-09-04 06:10] LABS: CLARITY,URINE CLEAR (CLEAR); COLOR,URINE YELLOW (YELLOW); LEUKOCYTE ESTERASE ,URINE NEGATIVE (NEGATIVE)
[2022-09-04 06:11] LABS: KETONES,URINE NEGATIVE (NEGATIVE); NITRITE,URINE NEGATIVE (NEGATIVE); PROTEIN,URINE DIPSTICK 1+ (NEGATIVE); URINE UROBILINOGEN 1 mg/dL (0.2 - 1)
[2022-09-04 06:13] LABS: BACTERIA,URINE FEW /HPF; EPITHELIAL CELLS,URINE FEW /LPF; RBC,URINE >50 /HPF (0-5); WBC,URINE (MAN) 0-5 /HPF (0-5)
[2022-09-04 06:20] LABS: HEMATOCRIT 40.6 % (38.2-49.6); HEMOGLOBIN 13.2 g/dL (14.0-18.0); MEAN CORPUSCULAR HEMOGLOBIN 32.4 pg (28-32); MEAN CORPUSCULAR HGB CONC 32.5 g/dL (31-35); MEAN CORPUSCULAR VOLUME 99.8 fL (81-99); PLATELET COUNT 191 x10e3/uL (140-360); RED BLOOD COUNT 4.07 x10e6/uL (4.3-5.7); RED CELL DISTRIBUTION WIDTH 15.9 % (11.7-14.4)
[2022-09-04 07:24] LABS: ANION GAP 11.1 mmol/L (8-16); CALCIUM 8.3 mg/dL (8.4-10.2); CREATININE, SERUM 0.78 mg/dL (0.72-1.25); POTASSIUM 4.1 mmol/L (3.5-5.1)
[2022-09-04] MEDS: ALBUTEROL SULF 0.083% NEB SOLN 3 ML NEB NEB SCH (07:43)
[2022-09-04] MEDS: CARBIDOPA/LEVODOPA 25/100 CR TAB PO SCH (09:00)
[2022-09-04] MEDS: FAMOTIDINE 20 MG/2 ML VIAL IV SCH ×2 (10:21→17:00)
[2022-09-04] MEDS: Morphine 4mg INJECTION 4 MG/ML INJ IV PRN ×3 (10:41→22:07)
[2022-09-04] MEDS: BENZONATATE 100 MG CAP PO SCH ×3 (10:42→21:18)
[2022-09-04] MEDS: TAMSULOSIN HCL 0.4 MG CAP PO SCH ×2 (10:42→21:18)
[2022-09-04] MEDS: CIPROFLOXACIN 500 MG TAB PO SCH ×2 (10:42→17:00)
[2022-09-04] MEDS: SERTRALINE HCL 100 MG TAB PO SCH (10:42)
[2022-09-04] MEDS ORDERED: GABAPENTIN300 MG PO (10:49)
[2022-09-04] MEDS ORDERED: CLONAZEPAM1 M1 PO (10:49)
[2022-09-04 11:31] LABS: EOSINOPHILS % (MANUAL) 2 % (0-7); LYMPHOCYTES % (MANUAL) 40 % (19-48); NEUTROPHILS % (MANUAL) 55 % (40-74)
[2022-09-04 11:32] LABS: PLATELET ESTIMATE ADEQUATE; PLATELET MORPHOLOGY COMMENT NORMAL; RBC MORPHOLOGY COMMENT NORMAL
[2022-09-04] MEDS: ALBUTEROL SULF 0.083% NEB SOLN 3 ML NEB INH SCH ×4 (11:40→23:00)
[2022-09-04 15:11] LABS: BASOPHILS # (AUTO) 0.1 (0.0-0.1); BASOPHILS % 0.7 % (0.0-1.0); EOSINOPHILS # (AUTO) 0.2 (0.0-0.4); HEMATOCRIT 42.2 % (38.2-49.6); HEMOGLOBIN 13.6 g/dL (14.0-18.0); LYMPHOCYTES # (AUTO) 1.8 (1.0-3.2); LYMPHOCYTES % 21.1 % (18.0-39.1); MEAN CORPUSCULAR HEMOGLOBIN 31.9 pg (28-32); MEAN CORPUSCULAR HGB CONC 32.2 g/dL (31-35); MEAN CORPUSCULAR VOLUME 98.8 fL (81-99); MONOCYTES # (AUTO) 0.7 (0.2-0.8); MONOCYTES % 8.3 % (4.4-11.3); NEUTROPHILS # (AUTO) 5.8 (2.1-6.9); NEUTROPHILS % 67.5 % (38.7-80.0); PLATELET COUNT 178 x10e3/uL (140-360); RED BLOOD COUNT 4.27 x10e6/uL (4.3-5.7); RED CELL DISTRIBUTION WIDTH 15.8 % (11.7-14.4)
[2022-09-04] MEDS: AMLODIPINE BESYLATE 5 MG TAB PO SCH (21:18)
[2022-09-04] MEDS: ZOLPIDEM TARTRATE 5 MG TAB PO PRN (22:06)
[2022-09-05] VITALS (10 sets, daily range): BP systolic 141–176; BP diastolic 63–90; PULSE 65–78; RESP 16–20; TEMP 97.4–98.7; O2SAT 95–99
[2022-09-05] MEDS: SODIUM CHLORIDE 0.9% 1000ML 1,000 ML IV SCH ×4 (02:15→21:26)
[2022-09-05] MEDS: ALBUTEROL SULF 0.083% NEB SOLN 3 ML NEB INH SCH ×6 (02:31→23:20)
[2022-09-05 05:23] LABS: BASOPHILS # (AUTO) 0.1 (0.0-0.1); BASOPHILS % 0.6 % (0.0-1.0); EOSINOPHILS # (AUTO) 0.1 (0.0-0.4); EOSINOPHILS % 1.4 % (0.0-6.0); HEMATOCRIT 41.7 % (38.2-49.6); HEMOGLOBIN 13.8 g/dL (14.0-18.0); LYMPHOCYTES # (AUTO) 1.8 (1.0-3.2); LYMPHOCYTES % 17.6 % (18.0-39.1); MEAN CORPUSCULAR HEMOGLOBIN 31.9 pg (28-32); MEAN CORPUSCULAR HGB CONC 33.1 g/dL (31-35); MEAN CORPUSCULAR VOLUME 96.5 fL (81-99); MONOCYTES # (AUTO) 0.7 (0.2-0.8); MONOCYTES % 6.5 % (4.4-11.3); NEUTROPHILS # (AUTO) 7.6 (2.1-6.9); NEUTROPHILS % 73.7 % (38.7-80.0); PLATELET COUNT 214 x10e3/uL (140-360); RED BLOOD COUNT 4.32 x10e6/uL (4.3-5.7); RED CELL DISTRIBUTION WIDTH 14.7 % (11.7-14.4)
[2022-09-05 05:49] LABS: ALBUMIN 3.3 g/dL (3.5-5.0); ANION GAP 12.8 mmol/L (8-16); CALCIUM 8.7 mg/dL (8.4-10.2); CREATININE, SERUM 0.8 mg/dL (0.72-1.25); MAGNESIUM 1.7 MG/DL (1.3-2.1); POTASSIUM 3.8 mmol/L (3.5-5.1)
[2022-09-05] MEDS ORDERED: Morphine 2mg Syringe 2 MG/ML SYR ONE (08:45)
[2022-09-05] MEDS: PROMETHAZINE 12.5MG/ NACL 0.9% 12.5 MG/50 ML BAG IV PRN ×2 (08:53→13:29)
[2022-09-05] MEDS: Morphine 4mg INJECTION 4 MG/ML INJ IV PRN ×4 (08:57→21:13)
[2022-09-05] MEDS ORDERED: HYDRALAZINE HCL 20 MG/ML VIAL IV PRN (09:45)
[2022-09-05] MEDS: DOCUSATE SODIUM 100 MG CAP PO SCH (11:09)
[2022-09-05] MEDS: TAMSULOSIN HCL 0.4 MG CAP PO SCH ×2 (11:09→21:08)
[2022-09-05] MEDS: BENZONATATE 100 MG CAP PO SCH ×3 (11:09→21:08)
[2022-09-05] MEDS: CIPROFLOXACIN 500 MG TAB PO SCH ×2 (11:09→16:27)
[2022-09-05] MEDS: FAMOTIDINE 20 MG/2 ML VIAL IV SCH ×2 (11:09→16:28)
[2022-09-05] MEDS: SERTRALINE HCL 100 MG TAB PO SCH (11:09)
[2022-09-05] MEDS: SENNOSIDES 8.6 MG TAB PO SCH (11:09)
[2022-09-05] MEDS: ONDANSETRON HCL INJ 2MG/ML 2ML 2 MG/ML VIAL IV PRN (11:50)
[2022-09-05] MEDS: GABAPENTIN 300 MG CAP PO SCH (16:27)
[2022-09-05] MEDS: ZOLPIDEM TARTRATE 5 MG TAB PO PRN (21:08)
[2022-09-05] MEDS: AMLODIPINE BESYLATE 5 MG TAB PO SCH (21:09)
[2022-09-06] VITALS (10 sets, daily range): BP systolic 139–163; BP diastolic 68–84; PULSE 61–72; RESP 14–20; TEMP 96.7–98.7; O2SAT 94–100
[2022-09-06] MEDS: ALBUTEROL SULF 0.083% NEB SOLN 3 ML NEB INH SCH ×6 (02:20→23:10)
[2022-09-06 05:01] LABS: ANION GAP 13.7 mmol/L (8-16); CREATININE, SERUM 0.81 mg/dL (0.72-1.25); POTASSIUM 3.7 mmol/L (3.5-5.1)
[2022-09-06] MEDS: TAMSULOSIN HCL 0.4 MG CAP PO SCH ×2 (09:00→19:53)
[2022-09-06] MEDS: CIPROFLOXACIN 500 MG TAB PO SCH ×2 (09:00→16:38)
[2022-09-06] MEDS: DOCUSATE SODIUM 100 MG CAP PO SCH (09:00)
[2022-09-06] MEDS: SENNOSIDES 8.6 MG TAB PO SCH (09:00)
[2022-09-06] MEDS: GABAPENTIN 300 MG CAP PO SCH (09:00)
[2022-09-06] MEDS: BENZONATATE 100 MG CAP PO SCH ×3 (09:00→19:53)
[2022-09-06] MEDS: SERTRALINE HCL 100 MG TAB PO SCH (09:00)
[2022-09-06] MEDS: FAMOTIDINE 20 MG/2 ML VIAL IV SCH ×2 (09:44→16:38)
[2022-09-06] MEDS: SODIUM CHLORIDE 0.9% 1000ML 1,000 ML IV SCH ×3 (09:44→19:58)
[2022-09-06] MEDS ORDERED: IOPAMIDOL 610MG/1ML 300 MG/ML VIAL IV ONE (10:13)
[2022-09-06] MEDS ORDERED: CEFTRIAXONE 1 GM VIAL ONE (12:09)
[2022-09-06] MEDS ORDERED: ONDANSETRON HCL INJ 2MG/ML 2ML 2 MG/ML VIAL ONE (12:54)
[2022-09-06] MEDS ORDERED: LIDOCAINE HCL 2% LOCAL INJ 5 ML SDV VIAL INJ ONE (12:54)
[2022-09-06] MEDS ORDERED: SEVOFLURANE INHAL SOLN 250 ML PEN BTL ONE (12:54)
[2022-09-06] MEDS ORDERED: PROPOFOL IV EMULSION 10 MG/ML 20 ML VIAL ONE (12:54)
[2022-09-06] MEDS ORDERED: FENTANYL CITRATE/PF 100MCG/2 ML INJ ONE (13:04)
[2022-09-06] MEDS: Morphine 4mg INJECTION 4 MG/ML INJ IV PRN ×2 (14:38→19:53)
[2022-09-06] MEDS: ONDANSETRON HCL INJ 2MG/ML 2ML 2 MG/ML VIAL IV PRN ×2 (14:38→19:53)
[2022-09-06] MEDS: AMLODIPINE BESYLATE 5 MG TAB PO SCH (19:53)
[2022-09-06] MEDS: ZOLPIDEM TARTRATE 5 MG TAB PO PRN (22:18)
[2022-09-07] VITALS: BP 152/77; PULSE 70; RESP 18; TEMP 98.7; O2SAT 100
[2022-09-07] MEDS: ALBUTEROL SULF 0.083% NEB SOLN 3 ML NEB INH SCH ×2 (03:05→07:00)
[2022-09-07 04:00] VITALS: BP 143/76; PULSE 64; RESP 17; TEMP 98.2; O2SAT 95
[2022-09-07] MEDS: SODIUM CHLORIDE 0.9% 1000ML 1,000 ML IV SCH (04:08)
[2022-09-07 08:07] VITALS: BP 153/75; PULSE 57; RESP 17; TEMP 98; O2SAT 95
[2022-09-07] MEDS: BENZONATATE 100 MG CAP PO SCH (09:00)
[2022-09-07] MEDS: DOCUSATE SODIUM 100 MG CAP PO SCH (09:00)
[2022-09-07] MEDS: SERTRALINE HCL 100 MG TAB PO SCH (09:00)
[2022-09-07] MEDS: TAMSULOSIN HCL 0.4 MG CAP PO SCH (09:00)
[2022-09-07] MEDS: CIPROFLOXACIN 500 MG TAB PO SCH (09:00)
[2022-09-07] MEDS: SENNOSIDES 8.6 MG TAB PO SCH (09:00)
[2022-09-07] MEDS: GABAPENTIN 300 MG CAP PO SCH (09:00)
[2022-09-07] MEDS: FAMOTIDINE 20 MG/2 ML VIAL IV SCH (09:00)
[2022-09-07 09:09] VITALS: BP 153/75; PULSE 57; RESP 17; TEMP 98; O2SAT 95
== END 2022-09-07 09:27 | disposition home or self-care (01) | DRG 661 ==
LOC: FSED 06:26 → ERHOLD 08:14 → MED/SURG 10:09 → OBSVTOIN 09-04 10:59
PROVIDERS: ADMIT Internal Medicine; ATTEND Internal Medicine
PROC: 0TP98DZ Removal of Intraluminal Device from Ureter, Via Natural or Artificial Opening Endoscopic (ICD-10-PCS; principal; 2022-09-04)
PROC: 0T778DZ Dilation of Left Ureter with Intraluminal Device, Via Natural or Artificial Opening Endoscopic (ICD-10-PCS; 2022-09-04)
PROC: BT1D1ZZ Fluoroscopy of Right Kidney, Ureter and Bladder using Low Osmolar Contrast (ICD-10-PCS; 2022-09-04)
DX: N13.2 Hydronephrosis with renal and ureteral calculous obstruction (principal); R31.29 Other microscopic hematuria; G20 Parkinson's disease; G25.81 Restless legs syndrome; F41.8 Other specified anxiety disorders; I10 Essential (primary) hypertension; J44.9 Chronic obstructive pulmonary disease, unspecified; F32.A Depression, unspecified; G47.00 Insomnia, unspecified; F41.9 Anxiety disorder, unspecified; G62.9 Polyneuropathy, unspecified; F17.290 Nicotine dependence, other tobacco product, uncomplicated; K57.90 Diverticulosis of intestine, part unspecified, without perforation or abscess without bleeding; R16.1 Splenomegaly, not elsewhere classified; N40.0 Benign prostatic hyperplasia without lower urinary tract symptoms; Z20.822 Contact with and (suspected) exposure to COVID-19; Z90.49 Acquired absence of other specified parts of digestive tract
CPT/HCPCS: 36415; 71046; 74018; 74176; 74420; 80048; 80053; 81001; 81003; 83735; 85007; 85025; 85027; 94799; 96374; 96375; 96376; 99284; C1758; C2617; G0378; J0696; J1885; J2001; J2270; J2405; J2550; J7030

== ENCOUNTER → 2022-09-29 | Day surgery (SDC) | payer MEDICARE ==
[~2022-09-29] MED LIST changes: +ASPIRIN81 MG PO; +CLONAZEPAM1 M1 PO; +DEXAMETHASONE SOD PHOS INJ 4 MG/ML SDV ONE; +EPHEDRINE SULFATE INJ 50 MG/ML VIAL ONE; +FENTANYL CITRATE/PF 100MCG/2 ML INJ ONE; +GABAPENTIN300 MG PO; +IOPAMIDOL 610MG/1ML 300 MG/ML VIAL IV ONE; +LIDOCAINE HCL 2% LOCAL INJ 5 ML SDV VIAL INJ ONE; +MIRTAZAPINE15 MG PO; +NEURONTIN300 MG PO; +ONDANSETRON HCL INJ 2MG/ML 2ML 2 MG/ML VIAL ONE; +POVIDONE IODINE 0.05% 0.05 % ML PO ONE; +PROPOFOL IV EMULSION 10 MG/ML 20 ML VIAL ONE; +SEVOFLURANE INHAL SOLN 250 ML PEN BTL ONE
[2022-09-29 08:15] VITALS: BP 162/89; PULSE 74; RESP 17; O2SAT 97
== END | disposition home or self-care (01) ==
LOC: OR 05:36
PROVIDERS: ATTEND Urology
DX: N20.1 Calculus of ureter (principal); Z46.6 Encounter for fitting and adjustment of urinary device; N13.30 Unspecified hydronephrosis; R80.9 Proteinuria, unspecified; N40.1 Benign prostatic hyperplasia with lower urinary tract symptoms; I10 Essential (primary) hypertension; G89.29 Other chronic pain; F32.A Depression, unspecified; F41.9 Anxiety disorder, unspecified; F17.200 Nicotine dependence, unspecified, uncomplicated; Z79.82 Long term (current) use of aspirin; Z79.899 Other long term (current) drug therapy; Z84.1 Family history of disorders of kidney and ureter
CPT/HCPCS: 52353; 88300; J1100; J2001; J2405; J2704; J3010; Q9967

== ENCOUNTER → 2024-04-20 | Outpatient (REF) | payer MEDICARE ==
[~2024-04-20] MED LIST changes: -DEXAMETHASONE SOD PHOS INJ 4 MG/ML SDV ONE; -EPHEDRINE SULFATE INJ 50 MG/ML VIAL ONE; -FENTANYL CITRATE/PF 100MCG/2 ML INJ ONE; -IOPAMIDOL 610MG/1ML 300 MG/ML VIAL IV ONE; +IPRAT-ALBUT 0.5-3 ML NEB; +LEVOFLOXACIN250 MG PO; -LIDOCAINE HCL 2% LOCAL INJ 5 ML SDV VIAL INJ ONE; +LOSARTAN POTASS25 MG PO; -ONDANSETRON HCL INJ 2MG/ML 2ML 2 MG/ML VIAL ONE; -POVIDONE IODINE 0.05% 0.05 % ML PO ONE; -PROPOFOL IV EMULSION 10 MG/ML 20 ML VIAL ONE; +REMERON15 MG PO; -SEVOFLURANE INHAL SOLN 250 ML PEN BTL ONE; +VENTOLIN HFA18 GM INH; +ZOLOFT100 MG PO
== END ==
LOC: RAD 07:54
PROVIDERS: ATTEND Internal Medicine
DX: F17.200 Nicotine dependence, unspecified, uncomplicated (principal)
CPT/HCPCS: 71046

== ENCOUNTER 2024-07-23 12:46 | Emergency (ER) | payer MEDICARE ==
[~2024-07-23] VITALS: Ht 188 cm; Wt 95.7 kg
[2024-07-23] MEDS ORDERED: IOPAMIDOL 370 MG/ML 100 ML INFUS..BTL INJ ONE (15:01)
[2024-07-23] MEDS: Morphine 4mg INJECTION 4 MG/ML INJ IV ONE ×2 (15:59→18:29)
[2024-07-23 22:33] VITALS: PULSE 75; RESP 20; TEMP 98.4
[2024-07-23 23:06] VITALS: BP 166/79; PULSE 75; RESP 22; O2SAT 95
== END 2024-07-23 22:59 | disposition home or self-care (01) ==
LOC: FSED 13:15
DX: J93.9 Pneumothorax, unspecified (principal); S59.901A Unspecified injury of right elbow, initial encounter; W10.8XXA Fall (on) (from) other stairs and steps, initial encounter; Y93.01 Activity, walking, marching and hiking; I10 Essential (primary) hypertension; G62.9 Polyneuropathy, unspecified; F32.A Depression, unspecified; G25.81 Restless legs syndrome; Z87.442 Personal history of urinary calculi
CPT/HCPCS: 71046; 71260; 73080; 74177; 80053; 85025; 99284; J2270; Q9967

== ENCOUNTER 2024-12-26 07:26 | Inpatient (IN) | payer MEDICARE ==
[2024-12-26] VITALS (11 sets, daily range): BP systolic 141–174; BP diastolic 66–89; PULSE 72–96; RESP 16–20; TEMP 97.5–99.7; O2SAT 92–96
[~2024-12-26] VITALS: Ht 188 cm; Wt 95.7 kg
[2024-12-26 07:50] LABS: BASOPHILS % 0.4 % (0.0-1.0); EOSINOPHILS % 2.4 % (0.0-6.0); LYMPHOCYTES % 18.7 % (18.0-39.1); MONOCYTES % 7.6 % (4.4-11.3); NEUTROPHILS % 70.6 % (38.7-80.0); RED CELL DISTRIBUTION WIDTH 16.2 % (11.7-14.4)
[2024-12-26 08:31] LABS: EST GLOMERULAR FILTRATION RATE 86.0 ML/MIN (>=60)
[2024-12-26 09:36] LABS: LEUKOCYTE ESTERASE ,URINE NEGATIVE (NEGATIVE); PROTEIN,URINE DIPSTICK NEGATIVE (NEGATIVE); URINE UROBILINOGEN 0.2 mg/dL (0.2 - 1)
[2024-12-26 09:54] LABS: WBC,URINE (MAN) 0-5 /HPF (0-5)
[2024-12-26] MEDS: DEXAMETHASONE SOD PHOS 10 MG/1 ML VIAL IV ONE (10:20)
[2024-12-26] MEDS: ALBUTEROL/IPRATROPIUM 3 ML NEB NEB ONE (10:38)
[2024-12-26] MEDS ORDERED: OMEGA 3 1,0001 EACH PO (17:11)
[2024-12-26] MEDS ORDERED: TIZANIDINE HCL4 M1 PO (17:11)
[2024-12-26] MEDS ORDERED: ONDANSETRON HCL INJ 2MG/ML 2ML 2 MG/ML VIAL IV PRN (19:00)
[2024-12-26] MEDS ORDERED: BISACODYL 10 MG SUPP PR PRN (19:00)
[2024-12-26] MEDS ORDERED: ACETAMINOPHEN 325 MG TAB PO PRN (19:00)
[2024-12-26] MEDS ORDERED: POLYETHYLENE GLYCOL 3350 17 GM PACK PO PRN (19:00)
[2024-12-26] MEDS ORDERED: ALBUTEROL/IPRATROPIUM 3 ML NEB NEB PRN (19:00)
[2024-12-27] VITALS (10 sets, daily range): BP systolic 116–178; BP diastolic 70–94; PULSE 64–93; RESP 17–21; TEMP 97.9–98.5; O2SAT 95–98
[2024-12-27 00:19] LABS: CORONAVIRUS COVID-19 AG NEGATIVE (NEGATIVE)
[2024-12-27 07:00] LABS: BASOPHILS % 0.1 % (0.0-1.0); EOSINOPHILS % 0.0 % (0.0-6.0); LYMPHOCYTES % 6.5 % (18.0-39.1); MONOCYTES % 4.8 % (4.4-11.3); NEUTROPHILS % 87.9 % (38.7-80.0); RED CELL DISTRIBUTION WIDTH 15.9 % (11.7-14.4)
[2024-12-27 07:23] LABS: EST GLOMERULAR FILTRATION RATE 94.0 ML/MIN (>=60)
[2024-12-27] MEDS: SENNOSIDES 8.6 MG TAB PO SCH (09:00)
[2024-12-27] MEDS: DOCUSATE SODIUM 100 MG CAP PO SCH (09:00)
[2024-12-27] MEDS: SODIUM CHLORIDE 0.9% 1000ML 1,000 ML IV SCH (09:24)
[2024-12-27] MEDS: PREDNISONE 20 MG TAB PO SCH (09:25)
[2024-12-27] MEDS: AMLODIPINE BESYLATE 5 MG TAB PO SCH (09:25)
[2024-12-27 11:20] LABS: % IRON SATURATION 23.0 % (15-50)
[2024-12-27] MEDS: HYDRALAZINE HCL 20 MG/ML VIAL IV PRN (12:39)
[2024-12-27] MEDS: ENOXAPARIN SOD INJ 40 MG/0.4 ML SYR SC SCH (17:17)
[2024-12-28] VITALS (11 sets, daily range): BP systolic 163–192; BP diastolic 70–104; PULSE 75–92; RESP 17–23; TEMP 97.8–99.5; O2SAT 95–98
[2024-12-28 06:08] LABS: BASOPHILS % 0.2 % (0.0-1.0); EOSINOPHILS % 0.1 % (0.0-6.0); LYMPHOCYTES % 14.8 % (18.0-39.1); MONOCYTES % 6.1 % (4.4-11.3); NEUTROPHILS % 78.2 % (38.7-80.0); RED CELL DISTRIBUTION WIDTH 16.0 % (11.7-14.4)
[2024-12-28 06:34] LABS: EST GLOMERULAR FILTRATION RATE 91.0 ML/MIN (>=60)
[2024-12-28] MEDS: LOSARTAN POTASSIUM 25 MG TAB PO SCH (08:58)
[2024-12-28] MEDS ORDERED: HYDRALAZINE HCL 20 MG/ML VIAL IV PRN (09:00)
[2024-12-28] MEDS: ALBUTEROL/IPRATROPIUM 3 ML NEB NEB SCH (11:00)
[2024-12-28] MEDS: MELATONIN 5 MG TABLET PO PRN (21:52)
[2024-12-29] VITALS (7 sets, daily range): BP systolic 114–161; BP diastolic 62–88; PULSE 70–86; RESP 18–20; TEMP 97.6–99; O2SAT 94–100
[2024-12-29 06:53] LABS: BASOPHILS % 0.3 % (0.0-1.0); EOSINOPHILS % 0.2 % (0.0-6.0); LYMPHOCYTES % 27.4 % (18.0-39.1); MONOCYTES % 9.1 % (4.4-11.3); NEUTROPHILS % 62.4 % (38.7-80.0); RED CELL DISTRIBUTION WIDTH 15.9 % (11.7-14.4)
[2024-12-29 07:11] LABS: EST GLOMERULAR FILTRATION RATE 88.0 ML/MIN (>=60)
[2024-12-29] MEDS ORDERED: IPRAT-ALBUT 0.5-3 ML NEB (10:07)
[2024-12-29] MEDS ORDERED: AUGMENTIN 500-1 EACH PO (10:07)
[2024-12-29] MEDS ORDERED: ZITHROMAX500 MG PO (10:07)
[2024-12-29] MEDS ORDERED: COZAAR25 MG PO (10:07)
[2024-12-29] MEDS ORDERED: AMLODIPINE BESYL5 MG PO (10:07)
[2024-12-29] MEDS ORDERED: PREDNISONE10 MG PO (10:07)
[2024-12-29] MEDS ORDERED: ADVAIR 100-501 EACH INH (10:07)
[2024-12-29] MEDS ORDERED: IPRATROPIU0.2 MG/1 M INH (10:11)
== END 2024-12-29 11:20 | disposition home or self-care (01) | DRG 190 ==
LOC: ER 07:32 → ERHOLD 09:43 → MED/SURG3 14:23
PROVIDERS: ADMIT Internal Medicine; ATTEND Internal Medicine
DX: J44.0 Chronic obstructive pulmonary disease with (acute) lower respiratory infection (principal); J96.01 Acute respiratory failure with hypoxia; J20.9 Acute bronchitis, unspecified; J44.1 Chronic obstructive pulmonary disease with (acute) exacerbation; I10 Essential (primary) hypertension; R53.81 Other malaise; R53.1 Weakness; R31.29 Other microscopic hematuria; Z87.891 Personal history of nicotine dependence; G25.81 Restless legs syndrome; S22.41XD Multiple fractures of ribs, right side, subsequent encounter for fracture with routine healing; W19.XXXD Unspecified fall, subsequent encounter; Z91.81 History of falling; M51.369 Other intervertebral disc degeneration, lumbar region without mention of lumbar back pain or lower extremity pain; M48.061 Spinal stenosis, lumbar region without neurogenic claudication; M16.0 Bilateral primary osteoarthritis of hip; M17.0 Bilateral primary osteoarthritis of knee; F32.A Depression, unspecified; Z11.52 Encounter for screening for COVID-19; Z87.442 Personal history of urinary calculi; Z79.899 Other long term (current) drug therapy
CPT/HCPCS: 36415; 70450; 71045; 72125; 72128; 72131; 73522; 80048; 80053; 81001; 82607; 82728; 82746; 83540; 83735; 83880; 84443; 84466; 84484; 85025; 85045; 93005; 94640; 94799; 99285; J0360; J0696; J1100; J1650; J7030; J7050; J7512